=== PATIENT | female | born 1995 | race Caucasian/White ===

== ENCOUNTER 2019-03-08 10:15 | Emergency (ER) | payer OTHER ==
[~2019-03-08] VITALS: Ht 167.6 cm; Wt 103.0 kg
[2019-03-08 10:22] VITALS: Ht 167.6 cm; Wt 103.0 kg
[2019-03-08] MEDS ORDERED: KETOROLAC 30 MG INJ IV STA (10:56)
[2019-03-08] MEDS ORDERED: FAMOTIDINE 20 MG INJ IV STA (10:56)
[2019-03-08] MEDS ORDERED: ONDANSETRON 4 MG INJ IV STA (10:56)
[2019-03-08] MEDS ORDERED: SOD CHLORIDE 0.9% 1,000 ML IV STA (10:56)
[2019-03-08] MEDS ORDERED: SOD CHLORIDE 0.9% 100 ML ONE (11:48)
[2019-03-08] MEDS ORDERED: IOHEXOL 300MG/ML 150 ML BTL ONE (11:48)
[2019-03-08] MEDS ORDERED: FAMO-96 PO (12:14)
[2019-03-08] MEDS ORDERED: HYDR-4011 PO (12:14)
--- NOTE | 2019-03-08 12:22 | ERD ---
ER Documentation Chief Complaint Chief Complaint epigastric pain, vomitting & diarrhea since am HPI 24-year-old female presenting with epigastric pain with vomiting and diarrhea since this morning. Patient has no shortness of breath no cough and has never had this pain before. She denies any fevers. Has not taken medications for symptoms. Patient has a history of kidney stones. NKDA. Surgical history removal of her kidney stones. Social history smokes marijuana daily. Denies other drug use ROS All systems reviewed and are negative except as per history of present illness. Medications Home Meds Active Scripts Famotidine* (Pepcid*) 20 Mg Tablet, 20 MG PO BID for 4 Days, #30 TAB Prov:PAM CARLOS PA-C 03/08/19 Hydrocodone/Acetaminophen ([place] 5-325 Tablet) 1 Each Tablet, 1 TAB PO Q6H PRN for PAIN, #7 TAB Prov:PAM CARLOS PA-C 03/08/19 Allergies Allergies: Coded Allergies: No Known Allergy (Unverified , 03/08/19) PMhx/Soc Medical and Surgical Hx: pt denies Medical Hx, pt denies Surgical Hx Hx Alcohol Use: No Hx Substance Use: No Hx Tobacco Use: No Smoking Status: Never smoker FmHx Family History: No diabetes, No coronary disease, No other Physical Exam Vitals Vital Signs Date Temp Pulse Resp B/P (MAP) Pulse Ox O2 O2 Flow FiO2 Time Delivery Rate 03/08/19 98.3 68 18 116/63 97 10:22 (80) Physical Exam GENERAL: The patient is well-appearing, well-nourished, in no acute distress HEENT: Atraumatic. Conjunctivae are pink. Pupils equal, round, and reactive to light. There is no scleral icterus. Tympanic membranes clear bilaterally. Oropharynx clear. NECK: C-spine is soft and supple. There is no meningismus. There is no cervical lymphadenopathy CHEST: Clear to auscultation bilaterally. There are no rales, wheezes or rhonchi. HEART: Regular rate and rhythm. No murmurs, clicks, rubs or gallops. ABDOMEN: Normal active bowel sounds. No distention. No organomegaly. Tender to palpation in the epigastric region with no rebound tenderness. Result Diagram: 03/08/19 1104 03/08/19 1104 Results 24 hrs Laboratory Tests Test 03/08/19 11:04 White Blood Count 10.8 10^3/ul Red Blood Count 4.49 10^6/ul Hemoglobin 12.6 g/dl Hematocrit 39.6 % Mean Corpuscular Volume 88.2 fl Mean Corpuscular Hemoglobin 28.1 pg Mean Corpuscular Hemoglobin Concent 31.8 g/dl Red Cell Distribution Width 12.4 % Platelet Count 269 10^3/UL Mean Platelet Volume 9.9 fl Immature Granulocytes % 0.600 % Neutrophils % 80.0 % Lymphocytes % 11.2 % Monocytes % 6.6 % Eosinophils % 1.4 % Basophils % 0.2 % Nucleated Red Blood Cells % 0.0 /100WBC Immature Granulocytes # 0.060 10^3/ul Neutrophils # 8.7 10^3/ul Lymphocytes # 1.2 10^3/ul Monocytes # 0.7 10^3/ul Eosinophils # 0.2 10^3/ul Basophils # 0.0 10^3/ul Nucleated Red Blood Cells # 0.0 10^3/ul Urine Color YELLOW Urine Clarity CLOUDY Urine pH 5.0 Urine Specific [place] 1.031 Urine Ketones TRACE mg/dL Urine Nitrite NEGATIVE mg/dL Urine Bilirubin NEGATIVE mg/dL Urine Urobilinogen 1+ mg/dL Urine Leukocyte Esterase TRACE Tato/ul Urine Microscopic RBC 7 /HPF Urine Microscopic WBC 4 /HPF Urine Squamous Epithelial Cells MODERATE /HPF Urine Calcium Oxalate Crystals FEW /HPF Urine Bacteria FEW /HPF Urine Mucus MODERATE /HPF Urine Hemoglobin 2+ mg/dL Urine Glucose NEGATIVE mg/dL Urine Total Protein NEGATIVE mg/dl Urine Test NEGATIVE Sodium Level 142 mmol/L Potassium Level 4.4 mmol/L Chloride Level 107 mmol/L Carbon Dioxide Level 26 mmol/L Anion Gap 9 Blood Urea Nitrogen 12 mg/dl Creatinine 0.70 mg/dl Est Glomerular Filtrat Rate mL/min > 60 mL/min Glucose Level 102 mg/dl Calcium Level 9.5 mg/dl Total Bilirubin 0.4 mg/dl Direct Bilirubin 0.00 mg/dl Indirect Bilirubin 0.4 mg/dl Aspartate Amino Transf (AST/SGOT) 25 IU/L Alanine Aminotransferase (ALT/SGPT) 18 IU/L Alkaline Phosphatase 74 IU/L Total Protein 8.0 g/dl Albumin 4.6 g/dl Globulin 3.40 g/dl Albumin/Globulin Ratio 1.35 Lipase 40 U/L Current Medications Medications Dose Sig/Joe Start Time Status Last (Trade) Ordered Route PRN Stop Time Admin Dose Reason Admin Sodium 1,000 ml @ Q1H STAT 03/08/19 DC 03/08/19 Chloride 1,000 mls/hr IV 10:56 03/08/19 11:46 11:55 Ondansetron 4 mg ONCE STAT 03/08/19 DC 03/08/19 HCl (Zofran IV 10:56 03/08/19 11:46 Inj) 10:58 Famotidine 20 mg ONCE STAT 03/08/19 DC 03/08/19 (Pepcid Iv) IV 10:56 03/08/19 11:47 10:58 Ketorolac 30 mg ONCE STAT 03/08/19 DC 03/08/19 Tromethamine IV 10:56 03/08/19 11:46 (Toradol) 10:58 IV Flush 10 ml STK-MED 03/08/19 DC 03/08/19 (NS 10 ml) ONCE .ROUTE 11:48 03/08/19 11:51 11:49 Sodium 100 ml @ ud STK-MED 03/08/19 DC 03/08/19 Chloride ONCE .ROUTE 11:48 03/08/19 11:51 11:49 Iohexol 150 ml STK-MED 03/08/19 DC 03/08/19 (Omnipaque ONCE .ROUTE 11:48 03/08/19 11:52 300mg/ ml) 11:49 Procedures/MDM DIAGNOSTIC IMAGING REPORT Patient: JULY VALADEZ : 1995 Age: 24 Sex: F MR #: [id number] DOS: 03/08/19 1056 Ordering MD: WILL CARLOS PA-C Location: [facility] Room/Bed: PROCEDURE: CT abdomen and pelvis with contrast CLINICAL INDICATION: Pain. Vomiting. Diarrhea. TECHNIQUE: CT scan of the abdomen and pelvis without oral contrast was performed and is reconstructed at 2.5 mm contiguous axial intervals from the dome of the diaphragm to the inferior pubic rami.. The patient was scanned with intravenous contrast. Sagittal and coronal reformatted images were obtained from the axial source images. The calculated radiation dose measures 1279 mGy centimeters. The CTDI measures 22 mGy. Individualized dose optimization technique was used for the performance of this exam. This included 1. Automated exposure control. 2. Adjustment of the mA and / or kV according to the patient's size. 3. Use of iterative reconstructed technique. DICOM images are available. COMPARISON: None. FINDINGS: The lung bases are clear of any infiltrate or nodule. No effusion is seen. The liver is of normal size and contour with no mass or ductal dilatation. There is fatty infiltration. No gallstones are visualized. No splenic, adrenal or pancreatic abnormalities present. Kidneys are of normal size and contour. No hydronephrosis, calculus or mass Is seen. Ureters are of normal course and caliber with no stone. No bladder mass or stone is present. Uterus and ovaries appear normal. There is no aneurysm. No adenopathy is present. No bowel mass or obstruction is present. The appendix is normal. No phlegmon, ascites or pneumoperitoneum is visualized. The osseous structures are intact. IMPRESSION: No evidence of urolithiasis, obstructive uropathy, diverticulitis or appendicitis. Fatty liver. DIAGNOSTIC IMAGING REPORT Patient: JULY VALADEZ : 1995 Age: 24 Sex: F MR #: [id number] DOS: 03/08/19 1056 Ordering MD: WILL CARLOS PA-C Location: [facility] Room/Bed: PROCEDURE: US Abdomen (right upper quadrant). CLINICAL INDICATION: Abdominal pain TECHNIQUE: Multiple real-time longitudinal and transverse images of the right upper quadrant of the abdomen were acquired utilizing a curved array transducer. Images were reviewed on a high-resolution PACS workstation. COMPARISON: None FINDINGS: The liver is normal in size and demonstrates diffusely increased echogenicity without focal mass or intrahepatic biliary dilatation. Stones are present in the gallbladder measuring up to 1.5 cm. There is no pericholecystic fluid or gallbladder wall thickening. No intra or extrahepatic biliary dilatation is seen. The common bile duct measures 2.7 mm in maximal dimension. The visualized portions of the pancreas are unremarkable with obscuration of the tail of the pancreas. No free fluid is identified. The right kidney measures 10.5 cm in length. There is normal echogenicity within the right kidney. There is no perinephric fluid collection. No hydronephrosis, mass, or calculus is seen. IMPRESSION: 1. Diffusely increased hepatic echogenicity suggesting steatosis. 2. Cholelithiasis. ER Course: 1 L normal saline and IV Toradol given in ED. MDM: 24-year-old female presenting with epigastric pain. I have low suspicion for choledocholithiasis, cholecystitis, cholangitis or pancreatitis. Patient has findings consistent with cholelithiasis and no findings concerning for infectious process at this time. I have low suspicion for other acute abdominal emergencies. CT scan is within normal limits. I have low suspicion for cardiac or pulmonary emergency. Patient is discharged with strict ER precautions and told to follow-up with primary care within 1 to 2 days for close evaluation. All questions answered at discharge Departure Diagnosis: Primary Impression: Gallstones Condition: Stable Patient Instructions: Gallstones Referrals: [facility] YOU HAVE RECEIVED A MEDICAL SCREENING EXAM AND THE RESULTS INDICATE THAT YOU DO NOT HAVE A CONDITION THAT REQUIRES URGENT TREATMENT IN THE EMERGENCY DEPARTMENT. FURTHER EVALUATION AND TREATMENT OF YOUR CONDITION CAN WAIT UNTIL YOU ARE SEEN IN YOUR DOCTORS OFFICE WITHIN THE NEXT 1-2 DAYS. IT IS YOUR RESPONSIBILITY TO MAKE AN APPOINTMENT FOR FOLOW-UP CARE. IF YOU HAVE A PRIMARY DOCTOR --you should call your primary doctor and schedule an appointment IF YOU DO NOT HAVE A PRIMARY DOCTOR YOU CAN CALL OUR PHYSICIAN REFERRAL HOTLINE AT IF YOU CAN NOT AFFORD TO SEE A PHYSICIAN YOU CAN CHOSE FROM THE FOLLOWING [facility] CL[facility] [address] [facility]. [facility] [address] [facility] [facility] [address] [facility] [address] [facility] [address] [facility]. [facility] [address] Additional Instructions: FOLLOW UP WITH YOUR PRIMARY CARE PHYSICIAN TOMORROW.Return to this facility if you are not improving as expected. PAM CARLOS PA-C Mar 08, 2019 12:22
[2019-03-08 12:34] VITALS: BP 102/59; PULSE 79; RESP 18
== END 2019-03-08 12:57 | disposition home or self-care (01) ==
LOC: FTE 10:15
DX: K80.20 Calculus of gallbladder without cholecystitis without obstruction (principal)
CPT/HCPCS: 74177; 76705; 80053; 81001; 83690; 84703; 85025; J1885; J2405; J7030; Q9967; Z7610; 36415; 96374; 96375